=== PATIENT | male | born 1965 | race Caucasian/White ===

== ENCOUNTER 2017-04-26 19:26 | Emergency (ER) | payer MEDICARE ==
[~2017-04-26 19:26] MED LIST: SUBO8MIS SL; XANA0.5T PO
[2017-04-26 19:29] VITALS: BP 154/94; PULSE 88; RESP 16; TEMP 99; O2SAT 97
[2017-04-26] MEDS ORDERED: BACT800T5 PO (20:55)
--- NOTE | 2017-04-26 20:55 | PD ---
HPI . Scalp lesions Chief Complaint: Skin Problem Time Seen by Provider: 20:43 Travel History International Travel<30 days: No Contact w/Intl Traveler<30days: No Traveled to known affect area: No History of Present Illness HPI This patient presents with the chief complaint of scalp lesions. He has just noticed them. He states that they're sore. He denies any fever. No modifying factors. He rates his pain 6/10. 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 Xanax 0.5 mg (Alprazolam) Alprazolam 0.5 mg Tab 1 Tab PO TID Review of Systems Except as stated in HPI: all other systems reviewed are Neg General / Constitutional: No: Fever, Chills Skin: Positive Rash, Positive Lesions Physical Exam Narrative GENERAL: Awake and alert and in no acute distress. SKIN: Seborrheic dermatitis of the scalp. Associated patches of folliculitis. No drainage. The areas are small and swollen. No fluctuance. HEAD: Normocephalic/atraumatic. EYES: Pupils are equal. Extraocular movements are intact. NECK: Full range of motion without pain. CARDIOVASCULAR: Regular rate and rhythm. RESPIRATORY: Nonlabored respirations. MUSCULOSKELETAL: Atraumatic. NEUROLOGICAL: Nonfocal. PSYCHIATRIC: Appropriate mood and affect. Data Data Last Documented VS Vital Signs Date Time Temp Pulse Resp B/P (MAP) Pulse Ox O2 Delivery O2 Flow Rate FiO2 04/26/17 19:29 99.0 88 16 154/94 (114) 97 Room Air MDM Medical Decision Making Medical Screen Exam Complete: Yes Emergency Medical Condition: Yes Differential Diagnosis My differential diagnosis includes but is not limited to localized wound infection, cellulitis, abscess Narrative Course This patient presents with scalp lesions which he just noticed. Exam is consistent with folliculitis. He is also noted to have seborrheic dermatitis of the scalp. Will be discharged on . He will be advised to use head and shoulders. Diagnosis Primary Impression: Folliculitis Additional Impression: Seborrheic dermatitis of scalp Patient Instructions: Folliculitis (DC), General Instructions, Seborrheic Dermatitis (DC) Med/Other Pt SpecificInfo: Prescription(s) given Scripts Sulfamethoxazole-Trimethoprim (Bactrim DS) 800-160 Mg Tab 1 TAB PO BID for Infection, #20 TAB 0 Refills Prov: Sonia Alvarez MD 04/26/17 Disposition: 01 DISCHARGE HOME Condition: Stable Sonia Alvarez MD Apr 26, 2017 20:55
[2017-04-26] MEDS ORDERED: SULFAMETHOXAZOLE-TRIMETHOPRIM DS 800-160 MG TAB PO ONE (21:00)
== END 2017-04-26 21:15 | disposition home or self-care (01) ==
LOC: NEPD 19:26
DX: L73.9 Follicular disorder, unspecified (principal); L21.9 Seborrheic dermatitis, unspecified
CPT/HCPCS: 99283